=== PATIENT | female | born 1960 | race Caucasian/White ===

== ENCOUNTER → 2017-06-27 10:30 | Outpatient (CLI) | payer MEDICAID, SELFPAY ==
--- NOTE | 2017-06-27 10:38 | XR_ITS ---
XR elbow LT min 3V HISTORY: ITS.REASON: LT ELBOW PAIN, INJURY ORDERING PHYSICIAN: Rosemary Mott PATIENT AGE: 57 years COMPARISON: None FINDINGS: BONY STRUCTURES: No fracture or dislocation. No lytic or blastic change. Normal mineralization. SOFT TISSUES: Unremarkable. No radio opaque foreign bodies. No displaced fat pad. JOINT SPACE: Well-preserved. No significant arthritic changes evident. IMPRESSION: Negative left elbow.
--- NOTE | 2017-06-27 10:38 | XR_ITS ---
XR chest 2V HISTORY: ITS.REASON: TOBACCO USE ORDERING PHYSICIAN: Rosemary Mott PATIENT AGE: 57 years COMPARISON: None available FINDINGS: The cardiomediastinal silhouette and pulmonary vascularity are within normal limits. There is hyperinflation with attenuation of the peripheral pulmonary vessels consistent with COPD. In addition, there is increased density within the lingula consistent with pneumonia. Suggest follow until clear. There is also irregular increased density in the right apex consistent with an area of scarring. This is somewhat more prominent than when compared to the previous exam but may and somewhat be related to the technique. Follow-up is recommended. There is prominence of the interstitium throughout the lungs consistent with interstitial fibrosis. IMPRESSION: 1. Pneumonia within the lingula. 2. COPD with chronic fibrotic changes with increasing prominence of the interstitium. 3. Irregular density right apex scarring. This however is somewhat more prominent compared to the previous study. Suggest continued follow-up confirm stability. Chest CT may be of further value as well.
--- NOTE | 2017-06-27 10:38 | XR_ITS ---
XR hip RT 2-3V w/pelvis HISTORY: ITS.REASON: RT HIP PAIN ORDERING PHYSICIAN: Rosemary Mott PATIENT AGE: 57 years COMPARISON: None FINDINGS: No fracture or dislocation is evident. No significant degenerative change. No lytic or blastic change. Unremarkable soft tissues IMPRESSION: Negative right hip
== END ==
PROVIDERS: PCP Nurse Practitioner Family; Visit Provider Nurse Practitioner Family
DX: M25.551 Pain in right hip (principal); S59.902A Unspecified injury of left elbow, initial encounter; Z72.0 Tobacco use
CPT/HCPCS: 71046; 73080; 73502

== ENCOUNTER → 2017-07-09 07:48 | Outpatient (CLI) | payer MEDICAID, SELFPAY ==
--- NOTE | 2017-07-09 08:00 | US_ITS ---
US abdomen limited: HISTORY: ITS.REASON: ELEVATED LIVER ENZYMES ORDERING PHYSICIAN: Rosemary Mott PATIENT AGE: 57 years COMPARISON: None FINDINGS: PANCREAS: Unremarkable. No obvious mass or abnormal fluid collection. No ductal dilatation LIVER: No focal liver lesions demonstrated. Homogeneous echogenicity. No intrahepatic biliary ductal dilatation evident RIGHT KIDNEY: Unremarkable. Normal size and echogenicity. No hydronephrosis GALLBLADDER: Prior cholecystectomy. No ductal dilatation IMPRESSION: Status post cholecystectomy otherwise negative right upper quadrant ultrasound
--- NOTE | 2017-07-09 08:30 | MM_ITS ---
MM Dig screening mamm BI w/CAD CAD Screening COMPARISON: None, previous mammograms, [place], [place] from 2004 have been purged INDICATION: There is no personal or family history of breast cancer. TECHNIQUE: Standard CC and MLO images were obtained. R2 CAD reviewed. FINDINGS: Mild to moderate diffuse fibroglandular densities are seen in both breast and the findings are bilateral and symmetrical. There is a benign-appearing calcination right breast along with a mole marker right breast as well. There is no suspicious lesion and there are no suspicious microcalcifications. IMPRESSION: Fibrofatty parenchyma with no suspicious lesion seen BI-RADS Category: 2 Benign Finding(s) RECOMMENDED FOLLOW-UP: 1YR - 1 YEAR FOLLOW-UP (A letter has been sent to the patient regarding results of the study.)
== END ==
PROVIDERS: Family Provider Emergency Medicine; PCP Nurse Practitioner Family; Visit Provider Nurse Practitioner Family
DX: R74.8 Abnormal levels of other serum enzymes (principal); Z12.31 Encounter for screening mammogram for malignant neoplasm of breast
CPT/HCPCS: 76705; 77067

== ENCOUNTER → 2017-07-10 09:47 | Outpatient (CLI) | payer MEDICAID, SELFPAY ==
--- NOTE | 2017-07-10 10:02 | CT_ITS ---
CT abdomen pelvis w con CLINICAL INDICATION: ITS.REASON: UMBILICAL HERNIA,W/O OBSTRUCTION,W/O GANGRENE ORDERING PHYSICIAN: Rosemary Mott PATIENT AGE: 57 years COMPARISON: None TECHNIQUE: Axial images obtained with sagittal and coronal reformats. PROCEDURE: Oral Contrast: Redicat IV Contrast: 75 mL [id number]. FINDINGS: No acute finding in the lung bases. Prior cholecystectomy. Mild prominence of the intra and extrahepatic biliary radicals which may be related to the previous cholecystectomy. No space-occupying lesions of the liver. The spleen, adrenal glands, and pancreas are unremarkable.. No intestinal obstruction or free air. The stomach in duodenum and proximal jejunum are fluid-filled mildly distended nonspecific. No hydronephrosis or obstructing renal or ureteral calculi. There is a 1 7-m cyst along the lower pole the right kidney posteriorly. No suspicious renal mass is evident. There is mild amount retained colonic feces. No intestinal obstruction or free air. Unremarkable appendix. Scattered colonic diverticula. No evidence of diverticulitis. No pelvic mass or abnormal fluid collection or focal inflammatory change. There is mild distention of the urinary bladder. No acute bony anomalies. IMPRESSION: 1. There is a small ventral supraumbilical hernia containing fat 2. Fluid-filled mildly distended stomach, duodenum, and proximal jejunum. This is of questionable clinical significance. 3. No acute abdomen on the apparent There is a small ventral abdominal wall hernia. This contains fat and is superior to the level the umbilicus by approximately 2 cm.
== END ==
PROVIDERS: Family Provider Emergency Medicine; PCP Nurse Practitioner Family; Visit Provider Nurse Practitioner Family
DX: K42.9 Umbilical hernia without obstruction or gangrene (principal)
CPT/HCPCS: 74177; Q9967

== ENCOUNTER → 2017-11-19 10:13 | Outpatient (CLI) | payer MEDICAID, SELFPAY ==
--- NOTE | 2017-11-19 10:26 | XR_ITS ---
XR chest 2V HISTORY: ITS.REASON: CHEST PAIN,SHORTNESS OF BREATH ORDERING PHYSICIAN: Rosemary Mott PATIENT AGE: 57 years COMPARISON: 06/27/2017 FINDINGS: Unremarkable cardiovascular structures. There is COPD with chronic changes in the lingula with evidence of old granulomatous disease.. Chronic changes are present in the right apex as well. The right hilum is somewhat prominent. Patchy density is present in the left lower lobe and may be due to an area of atelectasis or infiltrate. IMPRESSION: COPD with chronic changes in the lingula with left lower lobe infiltrate and prominent right hilum. Chest CT with contrast may be of further value to exclude right hilar mass.
[2017-11-19 10:42] LABS: Basophils % 0.3 % (0.1-2.0); Eosinophils # 0.1 K/mm3 (0.0-0.4); Eosinophils % 1.9 % (0.1-12.0); Hematocrit 45.9 % (37.0-47.0); Hemoglobin 15.4 g/dL (12.2-16.2); Lymphocytes # 2.3 K/mm3 (0.7-4.5); Mean Corpuscular HGB Conc 33.6 g/dL (31.8-35.4); Mean Corpuscular Hemoglobin 30.7 pg (27.0-31.2); Mean Corpuscular Volume 91.3 fl (81-99); Mean Platelet Volume 8.5 fl (7.4-10.4); Monocytes # 0.6 K/mm3 (0.1-1.0); Neutrophils # 4.3 K/mm3 (1.8-7.8); Neutrophils % 58.8 % (37.0-80.0); Platelet Count 183 K/mm3 (142-424); Red Blood Count 5.03 M/mm3 (4.20-5.40); Red Cell Distribution Width 12.7 % (11.5-17.5); White Blood Count 7.3 K/mm3 (4.8-10.8)
[2017-11-19 11:44] LABS: Alanine Aminotransferase 18 U/L (12-78); Albumin Level 3.4 gm/dL (3.4-5.0); Albumin/Globulin Ratio 1.1 (1.1-1.8); Alkaline Phosphatase 88 U/L (46-116); Anion Gap 13.4 mEq/L (5-15); Aspartate Amino Transferase 15 U/L (15-37); Bilirubin,Total 0.5 mg/dL (0.2-1.0); Blood Urea Nitrogen 11 mg/dL (7-18); C-Reactive Protein 3.3 mg/L (0.0-0.9); Calcium 8.6 mg/dL (8.5-10.1); Carbon Dioxide 28 mmol/L (21.0-32.0); Chloride 105 mmol/L (98-107); Chol/HDL Ratio 4.2 (1-3.5); Cholesterol 159 mg/dL (140-200); Creatinine,Serum 0.71 mg/dL (0.55-1.02); Estimated Glomerular Filt Rate 85 ml/min (>60); Free T4 (Free Thyroxine) 1.16 ng/dl (0.76-1.46); GFR (African American) 103 ML/MIN (>60); Glucose 115 mg/dL (74-106); HDL Cholesterol 38 mg/dL (29-89); LDL Cholesterol 99 mg/dL (0-130); Potassium 3.4 mmoL/L (3.5-5.1); Sodium 143 mmol/L (136-145); Thyroid Stimulating Hormone 2.66 uIU/ml (0.358-3.740); Total Protein,Serum 6.4 gm/dL (6.4-8.2); Triglycerides 109 mg/dL (30-200); VLDL Cholesterol 22 mg/dL (0-40)
== END ==
PROVIDERS: Visit Provider Nurse Practitioner Family
DX: R07.9 Chest pain, unspecified (principal); R06.02 Shortness of breath; R00.2 Palpitations; M79.89 Other specified soft tissue disorders
CPT/HCPCS: 36415; 71046; 80053; 80061; 83880; 84439; 84443; 85025; 86140

== ENCOUNTER → 2017-12-04 13:17 | Outpatient (CLI) | payer MEDICAID, SELFPAY ==
--- NOTE | 2017-12-04 13:39 | CA_ITS ---
CA echo doppler complete PROCEDURE: INDICATIONS FOR THE TEST: Chest pain COPD+ Heart Murmur Tobacco Smoking+ Palpitations+ Fatigue Syncope Edema+ Hypertension Diabetes Mellitus Rheumatic Fever SOB+SMITH Obesity Hyperlipidemia Family History HD Additional History PATIENT INFORMATION HEIGHT: 66 WEIGHT:140 GENDER: Female B/P:137/60 2-D/M-MODE INTERPRETATION: 2-D MEASUREMENTS OBSERVED VALUES IN CMS Right Ventricular Dimension (RVDd) 2.6 Interventricular Septum (Thickness)(IVsd) 1.3 Left Ventricular Internal Dimensions(LVIDd) 4.3 Left Ventricular Posterior Wall (Thickness)(LVPWd) 1.1 Aortic Root 2.7 Aortic Cusp Separation 2.1 Left Atrial Dimensions (LAD) 2.6 2D 1. Left atrium is qualitatively mildly enlarged, left ventricle is normal size, left ventricle wall thickness is upper limit of the normal, there is preserved left ventricular systolic function, visually estimated ejection fraction 55% with no obvious regional wall motion abnormality. 2. The right atrium and right ventricle are normal size and contractility. 3. The aortic valve is minimally thickened and fibrosed. 4. The mitral and tricuspid valve leaflets are minimally thickened. 5. The pulmonic valve is poorly visualized. 6. No significant pericardial effusion noted. DOPPLER INTERROGATION: Doppler interrogation of the aortic, mitral and tricuspid valvular presence of moderate aortic, mild mitral and tricuspid regurgitation, tricuspid and jet velocity insufficient for calculation of the right ventricular systolic pressure, diastolic parameters are inconclusive. CONCLUSION: 1. Normal left ventricular size, preserved left ventricular systolic function, visually estimated ejection fraction 55% with no obvious regional wall motion abnormality, diastolic parameters are inconclusive. 2. Moderate aortic, mild mitral and tricuspid regurgitation 3. No significant pericardial effusion noted.
[2017-12-04 13:50] LABS: Blood Urea Nitrogen 14 mg/dL (7-18); Creatinine,Serum 0.72 mg/dL (0.55-1.02); Estimated Glomerular Filt Rate 84 ml/min (>60); GFR (African American) 102 ML/MIN (>60)
--- NOTE | 2017-12-04 14:36 | CT_ITS ---
CT chest wo/w con HISTORY: Chest pain, shortness of air, follow-up abnormal chest x-ray ITS.REASON: ABNORMAL CXR ORDERING PHYSICIAN: Rosemary Mott PATIENT AGE: 57 years COMPARISON: 11/19/2017 Technique: Axial images obtained without and with contrast. Sagittal and coronal reformatted images are also generated and reviewed. All CT scans at the facility use one or more dose reduction, viz: automated exposure control; ma/kV adjustment per patient size (including targeted exams where dose is matched to indication; i.e. head); or iterative reconstruction technique. FINDINGS: No mediastinal or hilar mass or adenopathy. Normal heart size. No evidence of pericardial effusion. There is mild diffuse bronchial thickening with centrilobular emphysema. The abnormality noted on the radiograph in the right hilum may been due to an area of pneumonia which is since cleared. No hilar mass evident in this region. The left lower lobe infiltrate has also improved. Irregular increased density is present in both lung apices probably related to fibrosis. There are scattered calcified granulomas. There are also scattered noncalcified pulmonary nodules which are less than 6 mm. No suspicious pulmonary nodules. No effusions or infiltrates. No evidence of central pulmonary embolus, aortic aneurysm, or aortic dissection. No acute bony anomalies. Upper abdominal images are unremarkable aside from mild biliary dilatation in the central and left aspect of the liver. IMPRESSION: 1. No adenopathy or suspicious pulmonary mass evident. 2. Scattered calcified and noncalcified pulmonary nodules. The noncalcified nodules are less than 6 mm. 3. Centrilobular emphysema and COPD 4. Biapical parenchymal opacities likely related to fibrosis. Consider [address] to confirm stability
== END ==
PROVIDERS: Family Provider Emergency Medicine; PCP Nurse Practitioner Family; Visit Provider Nurse Practitioner Family
DX: R06.02 Shortness of breath (principal); M79.89 Other specified soft tissue disorders; K21.0 Gastro-esophageal reflux disease with esophagitis; R93.8 Abnormal findings on diagnostic imaging of other specified body structures; R79.89 Other specified abnormal findings of blood chemistry
CPT/HCPCS: 36415; 71270; 82565; 84520; 93306; Q9967

== ENCOUNTER → 2023-03-25 11:59 | Outpatient (CLI) | payer MEDICAID, SELFPAY ==
[2023-03-27 17:20] LABS: QuantiFERON-TB Gold Plus Negative (Negative)
== END ==
PROVIDERS: PCP Nurse Practitioner Family; Visit Provider Nurse Practitioner Family
DX: Z11.1 Encounter for screening for respiratory tuberculosis (principal)
CPT/HCPCS: 36415; 86480